=== PATIENT | male | born 1940 | race Caucasian/White ===

== ENCOUNTER 2017-11-22 06:49 | Emergency (ER) | payer MEDICARE, OTHER ==
[~2017-11-22] VITALS: Ht 165.1 cm; Wt 92.6 kg
[~2017-11-22 06:49] MED LIST: AMO500 PO; ANT25 PO; CLA10 PO; COZ50 PO; FISH OIL PO; FLO4 PO; FLOINH4 INH; ISO10 PO; LEVEMIR FLEX100 U/ML SC; LOP50 PO; NATEGLINIDE PO; PROS5 PO; TRADJENTA PO; ZYL300 PO; [UNRECOGNIZED DRUG - CODE] PO
[2017-11-22 07:02] VITALS: Ht 165.1 cm; Wt 92.6 kg
[2017-11-22 08:22] LABS: CALCIUM 8.8 mg/dL (8.5-10.1); CARBON DIOXIDE 24.9 mmol/L (21-32); CHLORIDE SERUM 101 mmol/L (98-107); CREATININE SERUM 1.3 mg/dL (0.7-1.3); GLUCOSE SERUM 165 mg/dL (74-106); POTASSIUM SERUM 4.4 mmol/L (3.5-5.1); SODIUM SERUM 138 mmol/L (136-145)
[2017-11-22 10:12] VITALS: BP 168/98
== END 2017-11-22 10:25 | disposition home or self-care (01) ==
LOC: ED 06:49
PROVIDERS: Emergency Medicine
DX: T38.3X1A Poisoning by insulin and oral hypoglycemic [antidiabetic] drugs, accidental (unintentional), initial encounter (principal); J44.9 Chronic obstructive pulmonary disease, unspecified; I10 Essential (primary) hypertension; E11.9 Type 2 diabetes mellitus without complications; Z91.013 Allergy to seafood; Y92.89 Other specified places as the place of occurrence of the external cause

== ENCOUNTER 2019-02-12 11:57 | Emergency (ER) | payer MEDICARE, OTHER ==
[~2019-02-12] VITALS: Ht 165.1 cm; Wt 95.3 kg
[2019-02-12 12:23] VITALS: Ht 165.1 cm; Wt 95.3 kg
[2019-02-12 17:41] VITALS: BP 119/71
== END 2019-02-12 17:41 | disposition home or self-care (01) ==
LOC: ED 11:57
DX: M54.9 Dorsalgia, unspecified (principal); I10 Essential (primary) hypertension; J44.9 Chronic obstructive pulmonary disease, unspecified; N40.0 Benign prostatic hyperplasia without lower urinary tract symptoms
CPT/HCPCS: J1885